=== PATIENT | female | born 1940 | race American Indian/Alaskan Native ===

== ENCOUNTER 2017-09-30 14:31 | Inpatient (IN) | payer OTHER, MEDICARE ==
[~2017-09-30] VITALS: Ht 157.5 cm; Wt 77.2 kg
[~2017-09-30 14:31] MED LIST: VICODIN 5-3001 EACH PO
--- NOTE | 2017-09-30 15:33 | RADIOLOGY REPORT ---
EXAMINATION: XR CHEST CLINICAL INFORMATION: Altered mental status. Evaluate infection COMPARISON: 03/04/2017 TECHNIQUE: 2 views of the chest were obtained. FINDINGS: Lungs are clear. No focal consolidation or mass. Normal pulmonary vascularity. No pleural effusion or pneumothorax. Normal heart size. Regional skeleton intact. IMPRESSION: No acute pulmonary disease.
[2017-09-30 15:47] LABS: ABSOLUTE BASOPHIL COUNT 0 /CUMM (0.0-0.2); ABSOLUTE EOSINOPHIL COUNT 0.1 /CUMM (0.0-0.7); ABSOLUTE GRANULOCYTE CT 4.8 /CUMM (1.4-6.5); ABSOLUTE LYMPH COUNT 2.6 /CUMM (1.2-3.4); ABSOLUTE MONOCYTE COUNT 0.4 /CUMM (0.10-0.60); BASOPHIL % 0.3 % (0.0-2.0); EOSINOPHIL % 1.6 % (0-5); GRANULOCYTE % 60.3 % (42.2-75.2); HEMATOCRIT 33.2 % (37-47); MEAN CORPUSCULAR HGB 29.1 PG (27.0-31.0); MEAN CORPUSCULAR HGB CONC 33.4 G/DL (33.0-37.0); MEAN CORPUSCULAR VOLUME 87.1 FL (81.0-99.0); PLATELET COUNT 253 /CUMM (130-400); RBC DISTRIBUTION WIDTH 14.3 % (11.5-14.5); RED BLOOD CELL CT 3.81 /CUMM (4.20-5.40)
--- NOTE | 2017-09-30 16:33 | ED GENERAL ADULT ---
History of Present Illness General Chief Complaint: Altered Mental Status Stated Complaint: PER DAUGHTER ALTERED SPEECH, "GIBERISH WRITTING" Source: patient, family Exam Limitations: no limitations Vital Signs & Intake/Output Vital Signs & Intake/Output ED Intake and Output 10/03 0000 10/02 1200 Intake Total Output Total 500 Balance -500 Output, Urine 500 Allergies Coded Allergies: latex (Intermediate, SKIN IRRITATION 09/30/17) Sulfa (Sulfonamide Antibiotics) (Mild, VOMITING 09/30/17) Reconcile Medications Aspirin (Ecotrin*) 81 MG TABLET.DR 81 MG PO DAILY STROKE TAKE THIS TAB UNTIL 10/28/17 AND THEN STOP . Atorvastatin Calcium 80 MG TABLET 80 MG PO 1700 STROKE . Candesartan Cilexetil (Atacand) 16 MG TABLET 2 TAB PO DAILY HTN (Reported) Clopidogrel Bisulfate (Plavix) 75 MG TABLET 75 MG PO DAILY STROKE . Ergocalciferol (Vitamin D2) (Vitamin D2) 50,000 UNIT CAPSULE 1 CAP PO QW VIT D DEFICIENCY (Reported) Insulin Glargine/Lixisenatide (Soliqua 100 Unit-33 Mcg/Ml Pen) 100 UNIT-33 MCG/ ML (3 ML) INSULN.PEN 1 INJ DAILY DIABETES (Reported) Metformin HCl (Fortamet) 1,000 MG TAB.ER.24 1 PO DAILY DIABETES (Reported) Metoprolol Succ XL (Toprol XL) 25 MG TAB 1 TAB PO DAILY HTN (Reported) Triage Note: PT TO ED WITH DAUGHTER FOR DIFFICULTY PROCESSING WORDS AND FORMULATING SENTENCES INTERMITTENTLY. PT'S DAUGHTER REPORTS THAT PT WAS TRYING TO WRITE CHECKS YESTERDAY AND THE WRITING LOOKED LIKE GIBBERISH. PT IS NORMALLY VERY SHARP AND A/O. NO SLURRED SPEECH OR UNILATERAL WEAKNESS NOTED IN TRIAGE. PT IS A/O TO MONTH, PLACE, BUT COULD NOT REMEMBER YEAR BUT DOES KNOW PRESIDENT. Triage Nurses Notes Reviewed? yes Onset: Gradual Duration: week(s): Timing: intermittent HPI: 77 y/o female with h/o HTN, HLD, and diabetes presenting with intermittent episodes of expfressive aphasia with difficulty formulating sentences/word finding, difficulty writing, and difficulty reading. Pt presents with her daughter who helps to provider the hx. Daughter reports that yesterday she was writing a check and was unable to write and comprehensible words or numbers, the handwriting was "scribble." The episodes are intermittent, no known triggers, and pt is currently asymptomatic and back to her baseline. At triage pt was noted to be A&Ox2, but on my assessment is currently A&Ox3 with NIH stroke scale 0. Denies ROBERTS, head trasuma, extremity weakness/numbness/paresthesias, gait instability. (Nubia Trujillo) Past History Travel History Traveled to [place] past 21 day No Medical History Any Pertinent Medical History? see below for history Cardiovascular: hypertension, hyperlipidemia Endocrine: diabetes Surgical History Surgical History: KNEE SURGERY Psychosocial History What is your primary language Lori Tobacco Use: Never used ETOH Use: denies use Illicit Drug Use: denies illicit drug use Family History Hx Contributory? No (Nubia Trujillo) Review of Systems Review of Systems Constitutional: Reports: no symptoms. EENTM: Reports: no symptoms. Respiratory: Reports: no symptoms. Cardiovascular: Reports: no symptoms. GI: Reports: no symptoms. Genitourinary: Reports: no symptoms. Musculoskeletal: Reports: no symptoms. Skin: Reports: no symptoms. Neurological/Psychological: Reports: see HPI. Hematologic/Endocrine: Reports: no symptoms. Immunologic/Allergic: Reports: no symptoms. All Other Systems: Reviewed and Negative (Nubia Trujillo) Physical Exam Physical Exam General Appearance: well developed/nourished, no apparent distress, alert, awake , comfortable Head: atraumatic, normal appearance Eyes: Bilateral: normal appearance, PERRL, EOMI. Neck: normal inspection Respiratory: normal breath sounds, lungs clear Cardiovascular: regular rate/rhythm Gastrointestinal: soft, non-tender Back: normal inspection Extremities: normal inspection Neurologic/Psych: no motor/sensory deficits, awake, alert, oriented x 3, normal gait, electrical design engineer II-XII nml as tested, cerebellar function intact Skin: intact, normal color, warm/dry Core Measures ACS in differential dx? No CVA/TIA Diagnosis: Yes NIH Stroke Scale (24 Hours) NIH Stroke Scale (24 Hours) Response Value Level of Consciousness alert 0 LOC Questions answers both correctly 0 LOC Commands obeys both correctly 0 Best Gaze normal 0 Visual Guzman no visual loss 0 Facial Paresis normal 0 Motor Arm - Left no drift 0 Motor Arm - Right no drift 0 Motor Leg - Left no drift 0 Motor Leg - Right no drift 0 Limb Ataxia no ataxia 0 Sensory normal 0 Best Language no aphasia 0 Dysarthria normal articulation 0 Extinction and Inattention no neglect 0 Total 0 Sepsis Present: No Sepsis Focused Exam Completed? No (Nubia Trujillo) Progress Differential Diagnoses I considered the following diagnoses in my evaluation of the patient: [TIA vs CVA va infection vs metabolic deranagement vs dementia] Plan of Care: Orders Procedure Date/time Status Discharge Patient 10/02 UNK Active Laboratory Tests 10/02/17 1035: Anion Gap 14, Estimated GFR > 60, BUN/Creatinine Ratio 21.4, Magnesium 1.6 Labs remarkable for mild hypoMag, repleted orally. Otherwise labs and urine unremrkable EKG is nonn-ischemic, trop neg. CT scan IMPRESSION: - There are multiple areas of gyriform enhancement and hypoattenuation within the periphery of the left frontal lobe, the left parietal lobe, and the left temporal occipital lobe junction that are most suggestive of evolving subacute infarcts. There is mild cortical petechial hemorrhage versus laminar necrosis associated with the left parietal and left temporal occipital lobe infarcts. There is no associated mass effect. - There is also a chronic left MCA territory infarct and there are a few chronic lacunar infarcts within the right caudate. - The left internal carotid artery is occluded just beyond its origin, remains occluded throughout the entire cervical segment, and mildly reconstitutes at the level of the ophthalmic segment which along with the remainder of the left intracranial ICA are small in caliber. The left P-comm is partially occluded distally and there is a severe stenosis of the left A1 YAQUELIN segment. Decreased caliber of the left middle cerebral artery and its distal branches in comparison to the right side without a definite acute arterial occlusion. - Moderate to severe stenosis involving the right P2 SUPERVISOR SHIPFITTERS segment. - There is a moderate stenosis involving the left subclavian artery at the level of the scalene musculature. - There is mild beaded irregularity of the mid right cervical ICA suggesting fibromuscular dysplasia. There is also mild beaded irregularity of the vertebral arteries at the C1-C2 level suggesting fibromuscular dysplasia here as well. Pt given 325mg aspiring. Call to neurology placed. Discussed with hospitalist and will admit to tele. Pt signed out to Dr. Smith with neurology consult pending. Initial ED EKG: NSR, no ST T wave changes (Nubia Trujillo) Departure Departure Disposition: STILL A PATIENT Condition: Stable Clinical Impression Primary Impression: CVA (cerebral vascular accident) Secondary Impressions: Left carotid artery occlusion Referrals: Ivy Nation MD (PCP/Family) Departure Forms: Customer Survey General Discharge Information Prescriptions: Current Visit Scripts Aspirin (Ecotrin*) 81 MG PO DAILY #30 TAB TAKE THIS TAB UNTIL 10/28/17 AND THEN STOP . Atorvastatin Calcium 80 MG PO 1700 #30 TAB . Clopidogrel Bisulfate (Plavix) 75 MG PO DAILY #30 TAB . Admission Note Spoke With: Soren Polanco MD Documentation of Exam: Documentation of any treatments & extenuating circumstances including Concerns Regarding Discharge (functional status, medication knowledge or non-compliance, living conditions, etc.) that warrant an admission rather than observation: [HD monitoring, tele monitoring, serial neuro exams, neuro consult, anti-platelets] (Nubia Trujillo) PA/MARKETING DIRECTOR ASSISTED LIVING Co-Sign Statement Statement: ED Attending supervision documentation- [x] I saw and evaluated the patient. I have also reviewed all the pertinent lab results and diagnostic results. I agree with the findings and the plan of care as documented in the PA's/MARKETING DIRECTOR ASSISTED LIVING's documentation. [] I have reviewed the ED Record and agree with the PA's/MARKETING DIRECTOR ASSISTED LIVING's documentation. [] Additions or exceptions (if any) to the PAs/MARKETING DIRECTOR ASSISTED LIVING's note and plan are summarized below: [] I saw and personally examined the patient and I agree with the PAs evaluation. Neuro exam was normal on my evaluation. (Rubio Smith DO) Critical Care Note Critical Care Note Critical Care Time: non-applicable (Nubia Trujillo)
--- NOTE | 2017-09-30 19:37 | CT SCAN REPORT ---
EXAMINATION: CT ANGIOGRAM NECK WITH CONTRAST CT ANGIOGRAM BRAIN WITH CONTRAST CLINICAL INFORMATION: Dysarthria. COMPARISON: None available. TECHNIQUE: Test bolus sequences followed by intravenous administration 95 mL of Optiray. Helical imaging was performed in the axial plane from the thoracic inlet to the skull vertex. Delayed postcontrast imaging of the head was also performed. The data was processed at the electronic technologist workstation for generation of MIP sequences. Angled MIPs and volume rendered reformatted images were also generated at an offline 3D workstation. Stenoses are assessed in accordance with NASCET criteria unless otherwise indicated. FINDINGS: BRAIN: There are multiple areas of gyriform enhancement and hypoattenuation within the periphery of the left frontal lobe, the left parietal lobe, and the left temporal occipital lobe junction that are most suggestive of evolving subacute infarcts. There is mild cortical petechial hemorrhage versus laminar necrosis associated with the left parietal and left temporal occipital lobe infarcts. There is no associated mass effect. There is a chronic appearing lacunar infarct within the right caudate. There is a chronic left MCA territory infarct. Perivascular space within the inferior left putamen. CERVICAL SOFT TISSUES AND LUNG APICES: No significant soft tissue findings within the neck. There is cervical spondylosis. The imaged upper lungs are clear. NECK CTA: There is a moderate stenosis involving the left subclavian artery at the level of the scalene musculature. Proximal arch vessels are non-stenotic. The vertebral arteries are codominant. No significant ostial stenosis is visualized on either side. Both vertebral arteries are widely patent throughout their extracranial cervical course. The right common carotid artery is widely patent. Mild atherosclerotic calcification of the right carotid bifurcation which remains widely patent. There is mild beaded irregularity of the mid right cervical ICA suggesting fibromuscular dysplasia. There is also mild beaded irregularity of the vertebral arteries at the C1-C2 level suggesting fibromuscular dysplasia here as well. The left common carotid artery is small in caliber and remains patent. The left internal carotid artery is occluded just beyond its origin and remains included through the cervical segment. BRAIN CTA: There is faint reconstitution of the intracranial left internal carotid artery at the level of the ophthalmic segment. The left P-comm is occluded along its distal portion. Severe stenosis involving the left A1 YAQUELIN segment. The left middle cerebral artery is small in caliber however does remain patent throughout its course with decreased caliber of the distal left MCA branches when compared to the contralateral side. The right intracranial internal carotid artery exhibits atherosclerotic calcification without significant stenosis. The right anterior middle cerebral arteries are widely patent. Moderate to severe stenosis involving the right P2 WEB USER EXPERIENCE STRATEGIST segment. IMPRESSION: - There are multiple areas of gyriform enhancement and hypoattenuation within the periphery of the left frontal lobe, the left parietal lobe, and the left temporal occipital lobe junction that are most suggestive of evolving subacute infarcts. There is mild cortical petechial hemorrhage versus laminar necrosis associated with the left parietal and left temporal occipital lobe infarcts. There is no associated mass effect. - There is also a chronic left MCA territory infarct and there are a few chronic lacunar infarcts within the right caudate. - The left internal carotid artery is occluded just beyond its origin, remains occluded throughout the entire cervical segment, and mildly reconstitutes at the level of the ophthalmic segment which along with the remainder of the left intracranial ICA are small in caliber. The left P-comm is partially occluded distally and there is a severe stenosis of the left A1 YAQUELIN segment. Decreased caliber of the left middle cerebral artery and its distal branches in comparison to the right side without a definite acute arterial occlusion. - Moderate to severe stenosis involving the right P2 WEB USER EXPERIENCE STRATEGIST segment. - There is a moderate stenosis involving the left subclavian artery at the level of the scalene musculature. - There is mild beaded irregularity of the mid right cervical ICA suggesting fibromuscular dysplasia. There is also mild beaded irregularity of the vertebral arteries at the C1-C2 level suggesting fibromuscular dysplasia here as well. Findings were discussed with Francisca Low at 7:30 PM on 09/30/2017.
--- NOTE | 2017-09-30 20:19 | History & Physical ---
HungcarlHakan cochranh 09/30/17 2018: General Information and HPI MD Statement: I have seen and personally examined MAXIMINO MONTAGUE and documented this H&P. The patient is a 77 year old F who presented with a patient stated chief complaint of [altered mental status]. History of Present Illness: The patient is a 77 years old lady who is here due to a change in her mental status that was noticed by her daughter and herself. She was having problems with finding words and sentences for the past couple of weeks. This was statrted gradually. Today she had more significant symptoms. She also had "giberish writing" while writing a check. No vision problem or numbness is reported. No headache. She has been having difficulty with her balance but had not had a fall before. She feels that the room is spinning sometimes. She reports diarrhea a cople of days ago which had no blood but she has dark stool (uses Fe supplement). She also has a lower abdominal burning sensation sometimes which improves when she sits. She also had a surgery of her left foot and some "metal" was inserted in 2012, and she feels tingling and numbness in that area from time to time. PMHx: DM, HTN, HLP, Sinus infection, Low Vit D, PSHx: Knee replacement (2017) Social Hx: No smoking, no alcohol, no drugs Imaging: Head CTA: The left internal carotid artery is occluded just beyond its origin. There are multiple areas of gyriform enhancement and hypoattenuation within the periphery of the left frontal lobe, the left parietal lobe, and the left temporal occipital lobe junction that are most suggestive of evolving subacute infarcts. CXR: No acute pulmonary disease. Allergies/Medications Allergies: Coded Allergies: latex (Intermediate, SKIN IRRITATION 09/30/17) Sulfa (Sulfonamide Antibiotics) (Mild, VOMITING 09/30/17) Compliance With Home Meds: GOOD Past History Travel History Traveled to [place] past 21 day No Medical History Cardiovascular: hypertension, hyperlipidemia Endocrine: diabetes Surgical History Surgical History: KNEE SURGERY Past Family/Social History Psychosocial History ETOH Use: denies use Illicit Drug Use: denies illicit drug use Review of Systems Review of Systems Constitutional: Reports: see HPI. EENTM: Reports: see HPI. Cardiovascular: Reports: see HPI. Respiratory: Reports: see HPI. GI: Reports: see HPI. Genitourinary: Reports: see HPI. Musculoskeletal: Reports: see HPI, back pain. Skin: Reports: see HPI, rash. Neurological/Psychological: Reports: see HPI. Hematologic/Endocrine: Reports: see HPI. Exam & Diagnostic Data Last 24 Hrs of Vital Signs/I&O Vital Signs Date Time Temp Pulse Resp B/P B/P Pulse O2 O2 Flow FiO2 Mean Ox Delivery Rate 09/30 2235 98.7 105 19 164/90 96 09/30 1926 97 18 142/90 99 Room Air 09/30 1638 Room Air 09/30 1508 99.4 99 15 129/74 95 Room Air Room Air Intake & Output 10/01 0800 10/01 0000 09/30 1600 Intake Total 0 Output Total Balance 0 Intake, Oral 0 Patient 166 lb 164 lb Weight Weight Reported by Patient Measurement Method Physical Exam General Appearance Alert, Oriented X3, Cooperative, No Acute Distress Skin Temp/Moisture Exam: Warm/Dry Sepsis Skin Exam (color): Normal for Ethnicity HEENT Atraumatic, PERRLA, EOMI Neck Supple Cardiovascular Regular Rate, Normal S1, Normal S2 Lungs Clear to Auscultation, Normal Air Movement Abdomen Normal Bowel Sounds, Soft, No Tenderness Neurological Strength at 5/5 X4 Ext, Cranial Nerves 3-12 NL Extremities No Clubbing, No Cyanosis, Normal Pulses Vascular Normal Pulses, Pulses Symmetrical Assessment/Plan Assessment: Ms. Montague is a 77 yo lady who is here with cc of change in her speech pattern and writing. Head CTA has shown occlusion in her left internal coratid artery. It also revealed multiple subacute infarcts. Neurolosist recommended to start clopedigrol for her. She has been coughing, per her daughter it is a side effect of one of her medications, but in her current setting it is reasonable to perform a swallow test. Her daughter is supposed to get a complete list of her medications. The patient has complete occlusion of her left internal carotid artery, it might be reasonable to consult vascular surgeon although it is not likely that they will perform a procedure for her. As Ranked By This Provider Problem List: 1. CVA (cerebral vascular accident) Core Measures/Misc (12/05) Acute Coronary Syndrome ACS Diagnosis: No Congestive Heart Failure Congestive Heart Failure Diagnosis No Cerebrovascular Accident CVA/TIA Diagnosis: Yes NIH Stroke Scale: Total 0 tPA Risk/Benefit discussion I have discussed the risks, benefits, and alternatives of Alteplase treatment including: - If given promptly, can resolve or have major improvement in stroke symptoms. - Bleeding (hemorrhage) is the most common risk that can occur. - Bleeding may occur into the brain and cause~care home serious disability~ including - this is rare, affecting about 1% of patients. - Alternative treatments with proven benefit for patients with stroke include aspirin and care in a specialized unit where staff members pay careful attention to a variety of basic aspects of care. tPA given? No Reason tPA not ordered Medical Contraindication Current/Past Hx AFib/AFlutter No VTE (View Protocol) VTE Risk Factors Age>40 No Mechanical VTE Prophylaxis d/t N/A MechProphylax Ordered No VTE Pharm Prophylaxis d/t NA PharmProphylax ordered Sepsis (View protocol) Sepsis Present: No If YES complete Sepsis Event Note If YES complete Sepsis Event Note Devon Real MD 10/01/17 0427: General Information and HPI Allergies/Medications Home Med list Aspirin (Ecotrin*) 81 MG TABLET.DR 81 MG PO DAILY STROKE TAKE THIS TAB UNTIL 10/28/17 AND THEN STOP . Atorvastatin Calcium 80 MG TABLET 80 MG PO 1700 STROKE . Candesartan Cilexetil (Atacand) 16 MG TABLET 2 TAB PO DAILY HTN (Reported) Clopidogrel Bisulfate (Plavix) 75 MG TABLET 75 MG PO DAILY STROKE . Ergocalciferol (Vitamin D2) (Vitamin D2) 50,000 UNIT CAPSULE 1 CAP PO QW VIT D DEFICIENCY (Reported) Insulin Glargine/Lixisenatide (Soliqua 100 Unit-33 Mcg/Ml Pen) 100 UNIT-33 MCG/ ML (3 ML) INSULN.PEN 1 INJ DAILY DIABETES (Reported) Metformin HCl (Fortamet) 1,000 MG TAB.ER.24 1 PO DAILY DIABETES (Reported) Metoprolol Succ XL (Toprol XL) 25 MG TAB 1 TAB PO DAILY HTN (Reported) Core Measures/Misc (12/05) Sepsis (View protocol) If YES complete Sepsis Event Note If YES complete Sepsis Event Note Resident Review Statement Resident Statement: examined this patient, discussed with healthcare administration intern, discussed with family, reviewed EMR data (avail), reviewed images Other Findings: Patient is a 75-year-old female with past medical history of diabetes, hypertension, hyperlipidemia, GERD presenting this admission with chief complaint of dysarthria. Patient's family was present at time of interview and reports that patient has been having difficulty over the past 2-3 weeks with forming sentences intermittently and has been less quick to respond. Patient's daughter states that patient this afternoon started speaking gibberish and stuttering speech. Reports that patient read and write a check which she had diarrhea for years. Patient reports balance. Reports chronic hearing loss and occasional tinnitus. Denies any sensation of spinning room for herself. Denies any change in vision. Patient and family deny facial droop, numbness/weakness of one side. Daughter reports that she did start looking for a neurologist earlier in the week however was not able to schedule an appointment with anyone. Reports that patient saw a neurologist 15 years prior for left hand tremors which she was worked up for and was told was benign. Review of systems is significant for abdominal pain with burning sensation in the lower region. Patient denies any nausea, vomiting, constipation. Reports 1 day of diarrhea. Reports dark black stoolspatient is on iron supplementation at this is normal for her. Denies bright red blood per stool. Reports right thigh pain that started one week prior. Denies any fall. Was seen by her primary care physician and was started on the medication however did not receive it at the pharmacy. Patient has a history of right knee replacement performed in December 2016. Patient reports that she initially had difficulty ambulating. However now she is able to ambulate on her own without assistance. Patient denies chest pain, palpitations, shortness of breath, dysuria/hematuria. Patient in the ED had a head CT which showed multiple subacute infarcts and significant left-sided carotid artery stenosis with complete occlusion of the entire cervical segment of the left internal carotid artery with partial occlusion of the left P-comm and there is a severe stenosis of the left A1 YAQUELIN segment. The findings were discussed with neurology. Patient was given aspirin 325 mg 1 along with magnesium 4001 in the ED. Vital signs admission: MAXIMUM TEMPERATURE 99.4, heart rate 97-99, respiration rate 15-18, blood pressure 142/90, saturating at 95-99% on room air Gen.: Patient resting comfortably in bed in no acute distress HEENT: Normocephalic/atraumatic, extraocular movement intact, pupils equal and reactive to light and accommodation, moist mucosal membranes CVS: Regular rate and rhythm, S1 and S2 Lungs: Clear to auscultation bilaterally Abdomen: Soft, mildly distended, nontender, positive bowel sounds Neuro: Cranial nerves II through XII grossly intact, motor 5 out of 5 in all extremities, sensation intact Extremities: No edema, cyanosis, clubbing, tenderness, palpable pulses Labs: WBC 8, H&H 11.1 and 33.2, platelets 253, sodium 139, potassium 4.6, chloride 104, bicarbonate 21, BUN 18, creatinine 0.7, glucose 208, magnesium 1.4 , AST 26, ALT 40, troponin 0.01, UA negative Imaging: chest x-ray negative Head and neck CT: - There are multiple areas of gyriform enhancement and hypoattenuation within the periphery of the left frontal lobe, the left parietal lobe, and the left temporal occipital lobe junction that are most suggestive of evolving subacute infarcts. There is mild cortical petechial hemorrhage versus laminar necrosis associated with the left parietal and left temporal occipital lobe infarcts. There is no associated mass effect. - There is also a chronic left MCA territory infarct and there are a few chronic lacunar infarcts within the right caudate. - The left internal carotid artery is occluded just beyond its origin, remains occluded throughout the entire cervical segment, and mildly reconstitutes at the level of the ophthalmic segment which along with the remainder of the left intracranial ICA are small in caliber. The left P-comm is partially occluded distally and there is a severe stenosis of the left A1 YAQUELIN segment. Decreased caliber of the left middle cerebral artery and its distal branches in comparison to the right side without a definite acute arterial occlusion. - Moderate to severe stenosis involving the right P2 [employer] segment. - There is a moderate stenosis involving the left subclavian artery at the level of the scalene musculature. - There is mild beaded irregularity of the mid right cervical ICA suggesting fibromuscular dysplasia. There is also mild beaded irregularity of the vertebral arteries at the C1-C2 level suggesting fibromuscular dysplasia here as well. Patient is a 77-year-old female presenting with past medical history of hypertension, hyperlipidemia, diabetes presenting with symptoms indicative of CVA with imaging showing significant carotid artery disease and multiple ischemic infarcts suggesting thromboembolic disease resulting in subacute stroke. Patient is out of the window for TPA as her symptoms started approximately 2-3 weeks prior to this admission. I spoke with neurology and it is unlikely the patient will be a candidate for endarterectomy as she has complete occlusion of her left carotid artery at the cervical segment. Patient is on aspirin. After discussing with neurology was started on her on Plavix. Plan: Admit to telemetry Continuous telemetry monitoring Continue aspirin Started on Plavix High dose statin Insulin SS with accuchecks TIDAC/qHS Lipid panel Hemoglobin A1c ECHO Neurology consulted Vascular consulted Patient's daughter is to bring list of her home medications Heart healthy diet Swallow evaluation in AM PT/OT evaluation Code: Full code DVT PPx: Yaz DASH MD,Soren 10/01/17 0451: General Information and HPI MD Statement: I have seen and personally examined MAXIMINO MONTAGUE and documented this H&P. The patient is a 77 year old F who presented with a patient stated chief complaint of []. Past History Medical History Cardiovascular: hypertension, hyperlipidemia Endocrine: diabetes Surgical History Surgical History: KNEE SURGERY Past Family/Social History Psychosocial History Smoking Status: Never Smoked ETOH Use: denies use Illicit Drug Use: denies illicit drug use Review of Systems Review of Systems Constitutional: Reports: see HPI. Exam & Diagnostic Data Last 24 Hrs of Vital Signs/I&O Vital Signs Date Time Temp Pulse Resp B/P B/P Pulse O2 O2 Flow FiO2 Mean Ox Delivery Rate 09/30 2235 98.7 105 19 164/90 96 09/30 1926 97 18 142/90 99 Room Air 09/30 1638 Room Air 09/30 1508 99.4 99 15 129/74 95 Room Air Room Air Intake & Output 10/01 0800 10/01 0000 09/30 1600 Intake Total 0 Output Total Balance 0 Intake, Oral 0 Patient 167 lb 164 lb Weight Weight Reported by Patient Reported by Patient Measurement Method Physical Exam General Appearance Alert, Oriented X3, No Acute Distress HEENT Atraumatic, PERRLA, EOMI Neck Supple Lymphatic Axillary nl, Cervical nl Cardiovascular Regular Rate, Normal S1, Normal S2, No Murmurs Lungs Clear to Auscultation, Normal Air Movement Abdomen Normal Bowel Sounds, Soft, No Tenderness Neurological Strength at 5/5 X4 Ext, Cranial Nerves 3-12 NL Extremities No Clubbing, No Cyanosis, Normal Pulses Vascular Normal Pulses, Pulses Symmetrical Core Measures/Misc (12/05) Sepsis (View protocol) If YES complete Sepsis Event Note If YES complete Sepsis Event Note Attending MD Review Statement Attending Statement Attending MD Statement: examined this patient, discuss w/resident/PA/AIRCRAFT TIME CLERK, agreed w/resident/PA/AIRCRAFT TIME CLERK, amended to note Attending Assessment/Plan: This patient is a 75-year-old female with a significant past medical history for diabetes, hypertension, hyperlipidemia, GERD presenting this admission with chief complaint of dysarthria. The Patient's family reports that patient has been having difficulty over the past 2-3 weeks with forming sentences intermittently and has been less quick to respond. Patient's daughter states that patient this afternoon started speaking gibberish and stuttering speech. She presented to the ED and a head CT showed multiple subacute infarcts and significant left-sided carotid artery stenosis with complete occlusion of the entire cervical segment of the left internal carotid artery with partial occlusion of the left. The findings were discussed with neurology. Patient was given aspirin 325 mg 1 along with Plavix 4001 in the ED. The Patient was out of the window for TPA. Neurology states the patient is not a candidate for endarterectomy as she has complete occlusion of her left carotid artery at the cervical segment however the family would like further options. Vascular surgery was consulted for the AM.
[2017-09-30 22:35] VITALS: BP 164/90
[2017-10-01 07:13] VITALS: BP 124/80
[2017-10-01 08:29] LABS: ABSOLUTE BASOPHIL COUNT 0 /CUMM (0.0-0.2); ABSOLUTE EOSINOPHIL COUNT 0.2 /CUMM (0.0-0.7); ABSOLUTE GRANULOCYTE CT 4.2 /CUMM (1.4-6.5); ABSOLUTE LYMPH COUNT 3.2 /CUMM (1.2-3.4); ABSOLUTE MONOCYTE COUNT 0.5 /CUMM (0.10-0.60); BASOPHIL % 0.3 % (0.0-2.0); GRANULOCYTE % 51.5 % (42.2-75.2); HEMATOCRIT 33.2 % (37-47); MEAN CORPUSCULAR HGB 29.5 PG (27.0-31.0); MEAN CORPUSCULAR HGB CONC 33.8 G/DL (33.0-37.0); MEAN CORPUSCULAR VOLUME 87.3 FL (81.0-99.0); MEAN PLATELET VOLUME 8.4 FL (7.4-10.4); PLATELET COUNT 220 /CUMM (130-400); RBC DISTRIBUTION WIDTH 14.3 % (11.5-14.5); WHITE BLOOD CELL COUNT 8.1 /CUMM (4.8-10.8)
--- NOTE | 2017-10-01 12:03 | PN- Housestaff ---
Galina Crump 10/01/17 1202: Subjective Follow-up For: CVA Complaints: no complaints Tele-Events Since Last Visit: Sinus tachycardia. Heart rate 105(12 midnight) Normal sinus rhythm 92-98 Subjective: No complaints/no acute events overnight Review of Systems Constitutional: Reports: see HPI. Objective Last 24 Hrs of Vital Signs/I&O Vital Signs Date Time Temp Pulse Resp B/P B/P Pulse O2 O2 Flow FiO2 Mean Ox Delivery Rate 10/02 0800 Room Air 10/02 0732 98.5 98 18 150/86 97 Room Air 10/01 2307 98.0 94 18 104/66 97 Room Air 10/01 1515 97.7 94 21 128/82 95 10/01 1430 Room Air Intake & Output 10/02 1600 10/02 0800 10/02 0000 Intake Total 640 Output Total 500 Balance -500 640 Intake, Oral 640 Output, Urine 500 Patient 170 lb Weight Weight Bed scale Measurement Method Physical Exam General Appearance: Alert, Oriented X3, Cooperative Skin Temp/Moisture Exam: Cool/Dry HEENT: Atraumatic, PERRLA, EOMI Neck: Supple Cardiovascular: Regular Rate, Normal S1, Normal S2, No Murmurs Lungs: Clear to Auscultation, Normal Air Movement Abdomen: Normal Bowel Sounds, Soft, No Tenderness, No Hepatospenomegaly Neurological: Strength at 5/5 X4 Ext, Normal Tone, Sensation Intact Extremities: No Clubbing, No Cyanosis, No Edema Assessment/Plan Assessment: The patient is a 77 years old lady who is here due to a change in her mental status that was noticed by her daughter and herself. She was having problems with finding words and sentences for the past couple of weeks. This was statrted gradually. Today she had more significant symptoms. She also had "giberish writing" while writing a check. No vision problem or numbness is reported. No headache. She has been having difficulty with her balance but had not had a fall before. She feels that the room is spinning sometimes. She reports diarrhea a cople of days ago which had no blood but she has dark stool (uses Fe supplement). She also had a surgery of her left foot and some "metal" was inserted in 2012, and she feels tingling and numbness in that area from time to time. Vitals: Stable Problems; 1.Ischemic stroke-Multiple subacute infarcts-tPA not given 2. Diabetes, HTN, HLD Plan; stroke- reviewed ct scan findings with pts family at bedside. * continue dual antiplatelet therapy for 4 weeks * continue statin * bp medications are on hold for now to allow permissive htn * Lovenox discontinued due to petechial hemorrhages on ct head * Request PT consult * DVT px: ALPS * Diet:consistent carb diet * Code status: full Problem List: 1. CVA (cerebral vascular accident) Pain Ratin Pain Location: none Pain Goal: Remain pain free Pain Plan: follow pain pathway Tomorrow's Labs & Rationales: bep, cbc YemiMingsudheer 10/01/17 1637: Attending MD Review Statement Attending Statement Attending MD Statement: examined this patient, discuss w/resident/PA/NURSE ANESTHETIST, agreed w/resident/PA/NURSE ANESTHETIST, discussed with family, reviewed EMR data (avail), discussed with nursing Attending Assessment/Plan: stroke- reviewed ct scan findings with pts family at bedside. cont dual antiplatelet therapy for 4 weeks and cont statin and will allow permissive htn for now and will start bp meds as needed. d/w pts family that vascular surgery has been consulted but little could be done immediately in settings of acute stroke. Lovenox dced in view of petechial hemorrhages on ct will cont on ALPS will get PT consult d/w pt and pts family the care plan.
[2017-10-01 15:15] VITALS: BP 128/82
--- NOTE | 2017-10-01 16:13 | Cons- Neurology ---
General Information and HPI Consulting Request Date of Consult: 10/01/17 Requested By: Soren Polanco MD History of Present Illness: 77-year-old female presented after noting word findiNG difficulties, and difficulty writing Symptoms date back a few weeks when it was also noted that she had word finding difficulties and difficulties with conjugate in her verbs It was then noted that she could not write out her check correctly. She uses her right hand to write although states that she has a left-handed individual Symptoms worsened prompting visit to hospital ED There was no focal weakness upper and lower extremities There was no fall Symptoms fluctuated and this morning she appears to be doing better There was no vertigo or diplopia Prior to past couple of weeks she had no similar problems Allergies/Medications Allergies: Coded Allergies: latex (Intermediate, SKIN IRRITATION 09/30/17) Sulfa (Sulfonamide Antibiotics) (Mild, VOMITING 09/30/17) Home Med List: Hydrocodone/Acetaminophen (Vicodin 5-300 MG Tablet) 5 MG-300 MG TABLET 1 TAB PO BID PRN pain Current Medications: Current Medications Sig/Jessica Start time Last Medication Dose Route Stop Time Status Admin Acetaminophen 500 MG Q6P PRN 10/01 0915 AC 10/01 PO 0930 Aspirin 0 .STK-MED ONE 09/30 2012 DC PO Aspirin 325 MG ONCE ONE 10/01 1999 DC 09/30 PO 09/30 Aspirin Buffered 81 MG DAILY 10/01 0900 AC 10/01 PO 1257 Atorvastatin Calcium 80 MG 1700 10/01 1700 AC PO Clopidogrel Bisulfate 75 MG DAILY 09/30 2245 AC 10/01 PO 1257 Enoxaparin Sodium 40 MG DAILY 10/01 0900 DC 10/01 NM 0933 Insulin Aspart 0 TIDAC 10/01 0800 AC 10/01 SC 1257 Lidocaine 1 PAT DAILY NEEDED PRN 10/01 1100 AC TOP Magnesium Oxide 400 MG ONCE ONE 09/30 1645 DC 09/30 PO 09/30 1646 1705 Review of Systems Review of Systems: Mild headache today but usually no headaches No diplopia/ vertigo Hearing loss bilaterally No recent weight gain Occasional chest pains which were previously evaluated by cardiology No acute shortness of breath Occasional abdominal discomfort No incontinence Mild rash left upper extremity No swelling of lower extremities No falls or head trauma Past History Travel History Traveled to [place] past 21 day No Medical History Blood Transfusion Hx: No Cardiovascular: hypertension, hyperlipidemia Endocrine: diabetes Surgical History Surgical History: KNEE SURGERY Psychosocial History Where Do You Live? Home Services at Home: None Smoking Status: Never Smoked ETOH Use: denies use Illicit Drug Use: denies illicit drug use Exam & Diagnostic Data Vital Signs and I&O Vital Signs Date Time Temp Pulse Resp B/P B/P Pulse O2 O2 Flow FiO2 Mean Ox Delivery Rate 10/01 1515 97.7 94 21 128/82 95 10/01 1430 Room Air 10/01 0713 98.4 98 18 124/80 96 Room Air 09/30 2235 98.7 105 19 164/90 96 09/30 1926 97 18 142/90 99 Room Air 09/30 1638 Room Air Intake & Output 10/01 1600 10/01 0800 10/01 0000 Intake Total 760 400 100 Output Total Balance 760 400 100 Intake, Oral 760 400 100 Patient 167 lb Weight Weight Reported by Patient Measurement Method Physical Exam: Alert and oriented Language functions fund of knowledge attention span relatively intact Impaired short-term memory Able to write Able to read Heart sounds normal, no carotid bruits, distal pulses intact Extraocular movements full, pupils equal reactive, fundi benign, visual tovar intact no facial weakness or facial sensory loss,, palate tongue sholders intact , hearing mildly impaired bilaterally Normal tone and strength upper and lower extremities No sensory loss to light touch or position sense modalities Deep tendon reflexes hypoactive throughout Coordinative functions and gait show no abnormalities Last 48 Hours of Lab Results: Laboratory Tests 10/01 09/30 0640 1730 Chemistry Sodium (137 - 145 mmol/L) 142 Potassium (3.5 - 5.1 mmol/L) 4.4 Chloride (98 - 107 mmol/L) 104 Carbon Dioxide (22 - 30 mmol/L) 27 Anion Gap (5 - 16) 11 BUN (7 - 17 mg/dL) 21 H Creatinine (0.5 - 1.0 mg/dL) 0.7 Estimated GFR (>60 ml/min) > 60 BUN/Creatinine Ratio (7 - 25 %) 30.0 H Hemoglobin A1c (4.2 - 5.8 %) Pending Triglycerides (<150 mg/dL) 388 H Cholesterol (<200 MG/DL) 241 H LDL Cholesterol, Calc (65 - 129 mg/dL) 119 HDL Cholesterol (40 - 60 mg/dL) 45 Cholesterol/HDL Ratio (0.00 - 4.23 %) 5 H Hematology CBC w Diff NO MAN DIFF REQ WBC (4.8 - 10.8 /CUMM) 8.1 RBC (4.20 - 5.40 /CUMM) 3.80 L Hgb (12.0 - 16.0 G/DL) 11.2 L Hct (37 - 47 %) 33.2 L MCV (81.0 - 99.0 FL) 87.3 MCH (27.0 - 31.0 PG) 29.5 MCHC (33.0 - 37.0 G/DL) 33.8 RDW (11.5 - 14.5 %) 14.3 Plt Count (130 - 400 /CUMM) 220 MPV (7.4 - 10.4 FL) 8.4 Gran % (42.2 - 75.2 %) 51.5 Lymphocytes % (20.5 - 51.1 %) 39.7 Monocytes % (1.7 - 9.3 %) 6.5 Eosinophils % (0 - 5 %) 2.0 Basophils % (0.0 - 2.0 %) 0.3 Absolute Granulocytes (1.4 - 6.5 /CUMM) 4.2 Absolute Lymphocytes (1.2 - 3.4 /CUMM) 3.2 Absolute Monocytes (0.10 - 0.60 /CUMM) 0.5 Absolute Eosinophils (0.0 - 0.7 /CUMM) 0.2 Absolute Basophils (0.0 - 0.2 /CUMM) 0 Urines Urine Color (YEL,AMB,STR) STRAW Urine Clarity (CLEAR) CLEAR Urine pH (5.0 - 8.0) 6.0 Ur Specific Lodge (1.001 - 1.035) 1.010 Urine Protein (NEG,<30 MG/DL) NEG Urine Ketones (NEG) NEG Urine Nitrite (NEG) NEG Urine Bilirubin (NEG) NEG Urine Urobilinogen (0.1 - 1.0 EU/dl) 0.2 Ur Leukocyte Esterase (NEG) NEG Ur Microscopic EXAM NOT REQUIRED Urine Hemoglobin (NEG) NEG Urine Glucose (N MG/DL) NEG 09/30 1537 Chemistry Sodium (137 - 145 mmol/L) 139 Potassium (3.5 - 5.1 mmol/L) 4.6 Chloride (98 - 107 mmol/L) 104 Carbon Dioxide (22 - 30 mmol/L) 21 L Anion Gap (5 - 16) 14 BUN (7 - 17 mg/dL) 18 H Creatinine (0.5 - 1.0 mg/dL) 0.7 Estimated GFR (>60 ml/min) > 60 BUN/Creatinine Ratio (7 - 25 %) 25.7 H Glucose (65 - 99 mg/dL) 208 H Calcium (8.4 - 10.2 mg/dL) 9.1 Magnesium (1.6 - 2.3 mg/dL) 1.4 L Total Bilirubin (0.2 - 1.3 mg/dL) 0.3 AST (14 - 36 U/L) 26 ALT (9 - 52 U/L) 40 Alkaline Phosphatase (<127 U/L) 92 Troponin I (< 0.11 ng/ml) 0.02 Total Protein (6.3 - 8.2 g/dL) 6.9 Albumin (3.5 - 5.0 g/dL) 4.0 Globulin (1.9 - 4.2 gm/dL) 2.9 Albumin/Globulin Ratio (1.1 - 2.2 %) 1.4 Hematology CBC w Diff NO MAN DIFF REQ WBC (4.8 - 10.8 /CUMM) 8.0 RBC (4.20 - 5.40 /CUMM) 3.81 L Hgb (12.0 - 16.0 G/DL) 11.1 L Hct (37 - 47 %) 33.2 L MCV (81.0 - 99.0 FL) 87.1 MCH (27.0 - 31.0 PG) 29.1 MCHC (33.0 - 37.0 G/DL) 33.4 RDW (11.5 - 14.5 %) 14.3 Plt Count (130 - 400 /CUMM) 253 MPV (7.4 - 10.4 FL) 8.0 Gran % (42.2 - 75.2 %) 60.3 Lymphocytes % (20.5 - 51.1 %) 32.4 Monocytes % (1.7 - 9.3 %) 5.4 Eosinophils % (0 - 5 %) 1.6 Basophils % (0.0 - 2.0 %) 0.3 Absolute Granulocytes (1.4 - 6.5 /CUMM) 4.8 Absolute Lymphocytes (1.2 - 3.4 /CUMM) 2.6 Absolute Monocytes (0.10 - 0.60 /CUMM) 0.4 Absolute Eosinophils (0.0 - 0.7 /CUMM) 0.1 Absolute Basophils (0.0 - 0.2 /CUMM) 0 Imaging/Other Studies: BRAIN CTA: There is faint reconstitution of the intracranial left internal carotid artery at the level of the ophthalmic segment. The left P-comm is occluded along its distal portion. Severe stenosis involving the left A1 YAQUELIN segment. The left middle cerebral artery is small in caliber however does remain patent throughout its course with decreased caliber of the distal left MCA branches when compared to the contralateral side. The right intracranial internal carotid artery exhibits atherosclerotic calcification without significant stenosis. The right anterior middle cerebral arteries are widely patent. Moderate to severe stenosis involving the right P2 JAVA TECH segment. IMPRESSION: - There are multiple areas of gyriform enhancement and hypoattenuation within the periphery of the left frontal lobe, the left parietal lobe, and the left temporal occipital lobe junction that are most suggestive of evolving subacute infarcts. There is mild cortical petechial hemorrhage versus laminar necrosis associated with the left parietal and left temporal occipital lobe infarcts. There is no associated mass effect. - There is also a chronic left MCA territory infarct and there are a few chronic lacunar infarcts within the right caudate. - The left internal carotid artery is occluded just beyond its origin, remains occluded throughout the entire cervical segment, and mildly reconstitutes at the level of the ophthalmic segment which along with the remainder of the left intracranial ICA are small in caliber. The left P-comm is partially occluded distally and there is a severe stenosis of the left A1 YAQUELIN segment. Decreased caliber of the left middle cerebral artery and its distal branches in comparison to the right side without a definite acute arterial occlusion. - Moderate to severe stenosis involving the right P2 JAVA TECH segment. - There is a moderate stenosis involving the left subclavian artery at the level of the scalene musculature. - There is mild beaded irregularity of the mid right cervical ICA suggesting fibromuscular dysplasia. There is also mild beaded irregularity of the vertebral arteries at the C1-C2 level suggesting fibromuscular dysplasia here as well. Findings were discussed with Francisca Low at 7:30 PM on 09/30/2017. Assessment/Plan Assessment: Cerebrovascular accident left hemispheric Left carotid occlusion Recommendations: Dual antiplatelet agents for 4 weeks thereafter would discontinue aspirin and remain on clopidogrel Blood pressure allowed to rise to between 130 and 140 systolic Diabetic control Graduated exercise program Vegetables and fish as part of meals Mild weight loss Patient and patient's daughter desires consultation with vascular surgery. However discussion with family followed and likelihood of a surgical intervention remains remote Consult Acknowledgment - Thank you for your consult request.
[2017-10-01 23:07] VITALS: BP 104/66
[2017-10-02 07:32] VITALS: BP 150/86
--- NOTE | 2017-10-02 08:26 | PN- Housestaff ---
Candie Castillo 10/02/17 0826: Subjective Follow-up For: CVA Carotid Stenosis Subjective: Patient seen and examined this morning. She was accompanied by her family. Daughter is patients proxy and very concerned about patients care and eager to be discharged. Patient alert to person place and time this morning. Denies any headaches or symptoms of numbness, weakness. No fevers, urinary or bowel incontinence noted. Review of Systems Constitutional: Denies: see HPI. Objective Last 24 Hrs of Vital Signs/I&O Vital Signs Date Time Temp Pulse Resp B/P B/P Pulse O2 O2 Flow FiO2 Mean Ox Delivery Rate 10/02 0800 Room Air 10/02 0732 98.5 98 18 150/86 97 Room Air 10/01 2307 98.0 94 18 104/66 97 Room Air 10/01 1515 97.7 94 21 128/82 95 Intake & Output 10/02 1600 10/02 0800 10/02 0000 Intake Total 640 Output Total 500 Balance -500 640 Intake, Oral 640 Output, Urine 500 Patient 170 lb Weight Weight Bed scale Measurement Method Physical Exam General Appearance: Alert, Oriented X3, Cooperative, No Acute Distress HEENT: Atraumatic, PERRLA, EOMI, Mucous Membr. moist/pink Cardiovascular: Regular Rate, Normal S1, Normal S2, No Murmurs Lungs: Clear to Auscultation, Normal Air Movement Abdomen: Normal Bowel Sounds, Soft, No Tenderness Neurological: Normal Gait, Normal Speech, Strength at 5/5 X4 Ext, Normal Tone, Sensation Intact, Cranial Nerves 3-12 NL, Reflexes 2+, No significant deficits noted on speech. Patient able to comprehend and verbalize apporpriately during assessment. Extremities: No Clubbing, No Cyanosis, No Edema, Normal Pulses Vascular: Normal Pulses, Pulses Symmetrical Current Medications: Current Medications Sig/Jessica Start time Last Medication Dose Route Stop Time Status Admin Acetaminophen 500 MG Q6P PRN 10/01 0915 DCD 10/02 PO 0817 Aspirin Buffered 81 MG DAILY 10/01 0900 DCD 10/02 PO 0801 Atorvastatin Calcium 80 MG 1700 10/01 1700 DCD 10/01 PO 1711 Clopidogrel Bisulfate 75 MG DAILY 09/30 2245 DCD 10/02 PO 0801 Insulin Aspart 0 TIDAC 10/01 08 DCD 10/02 SC 0822 Lidocaine 1 PAT DAILY NEEDED PRN 10/01 1100 DCD TOP Last 24 Hrs of Lab/Noel Results Last 24 Hrs of Labs/Mics: Laboratory Tests 10/02/17 1035: Anion Gap 14, Estimated GFR > 60, BUN/Creatinine Ratio 21.4, Magnesium 1.6 Assessment/Plan Assessment: A/P: Patient is a 77 year old female with hypertension, diabetes mellitus, GERD who presented to the ED for chief complaint of dysarthria and difficulty with word finding. Patient that has been slower to respond and unable to write her routine checks. No weakness, facial droop or numbness stated. Patient alert to person place and time. CT demonstrated multiple subacute infarcts. Patient cleared for discharge today10/02/17 as per vascular surgery, neurology and medical team. Patient care discussed with family. Problem List: 1. Ischemic Stroke - Multiple Subacute Infarcts - No TPA given 2. 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 Diabetes/HTN/HLD PLAN: * Patient followed by Vascular Surgery and Neurology * Continue dual antiplatelet therapy for 4 weeks; then discontinue aspirin and remain on clopidogrel * Patient advised to control diabetes, diet including vegetables as part of meals and mild weight loss * Dr. Dominguez Vascular Surgery seen and examined patient; does not recommend any interventions at this time; follow up oputpatient with Carotid US * resume patient on home blood pressure medications and diabetic regimen * Advised to follow up with PCP, pulp roller, neurologist and vascular surgery at home Code Status: Full Code DVT PPx: ALPS DieT: Consistent Carb Diet Problem List: 1. CVA (cerebral vascular accident) Pain Ratin Pain Location: Denies pain today Pain Goal: Remain pain free Pain Plan: As per pain pathway Tomorrow's Labs & Rationales: Patient discharged today DVT/Prophylaxis: mechanical, early ambulation low risk Discharge Plan Discharge Disposition: home [facility] 10/02/17 1619: Attending MD Review Statement Attending Statement Attending MD Statement: examined this patient, discuss w/resident/PA/VEGETABLE LOADER, agreed w/resident/PA/VEGETABLE LOADER, discussed with family, reviewed EMR data (avail), discussed with nursing Attending Assessment/Plan: pt being dced home in stable condtion. Stroke- will be on dual antiplatelets therapy for 4 weeks and then will be on plavix. vascular surgery consulted - with ICA occlusion on left side. no acute intervention and plan will be to f/u with vascular surgery as and outpt and a carotid ultrasound as an outpatient . d /w pt and pts daughter the care plan.
--- NOTE | 2017-10-02 09:25 | ECHOCARDIOGRAM REPORT ---
MAXIMINO MONTAGUE Age: 77 : 1940 Gender: F Exam Date: 10/01/2017 08:41 Exam Location: 1 [address] Ht (in): 62 Wt (lb): 166 BSA: 1.84 BP: 124 / 80 Ordering Physician: Devon Real MD Referring Physician: Devon Real MD Technologist: Alicia Maldonado [facility] Room Number: 180-1 Indications: Rhythm: Atrial fibrillation Technical Quality: Fair FINDINGS Left Ventricle Normal size left ventricle. Mildly reduced global left ventricular systolic function. Abnormal septal motion. Right Ventricle Right ventricle not well visualized, grossly normal. Right Atrium Right atrium not well visualized, grossly normal. Left Atrium Mild left atrial dilatation. Mitral Valve Mitral valve thickened. Mitral annular calcification. Trace to mild mitral regurgitation. Aortic Valve Trileaflet aortic valve. Diffuse thickening (sclerosis) of the aortic valve cusps without reduced excursion. No aortic stenosis. No aortic regurgitation. Tricuspid Valve Tricuspid valve not well visualized, grossly normal. Trace tricuspid regurgitation. Pulmonic Valve Pulmonic valve not well visualized, grossly normal. Pericardium No pericardial effusion. Great Vessels Aortic root and proximal ascending aorta not well visualized, grossly normal. CONCLUSIONS 1. Minimal to mild aortic sclerosis is present with no valvular stenosis or insufficiency 2. Mitral leaflet thickening is present with mild annular calcification and minimal to mild mitral insufficiency with mild left atrial enlargement. 3. There is no significant pericardial fluid detected on the study. 4. The left ventricular chamber size is normal. There is very mild global hypokinesia present which is slightly worse in the anteroseptal region. Abnormal septal motion is present which may be due to the presence of a bundle branch block. Ejection fraction is approximately 40-45%. 5. The right heart structures are grossly normal. Minimal tricuspid insufficiency is present. The right ventricular systolic pressure was not accurately assessed. Kristy Leone M.D. (Electronically Signed) Final Date: 02 October 2017 09:24 MEASUREMENTS (Male / Female) Normal Values 2D ECHO LV Diastolic Diameter PLAX 4.9 cm 4.2 - 5.9 / 3.9 - 5.3 cm LV Systolic Diameter PLAX 4.1 cm 2.1 - 4.0 cm LV Fractional Shortening PLAX 16.3 % 25 - 46 % LV Ejection Fraction 2D Teich 34.2 % IVS Diastolic Thickness 1.0 cm LVPW Diastolic Thickness 1.0 cm LV Relative Wall Thickness 0.4 LVOT Diameter 2.0 cm Aortic Root Diameter 2.7 cm LA Systolic Diameter LX 3.0 cm 3.0 - 4.0 / 2.7 - 3.8 cm LA Volume 38.0 cm 18 - 58 / 22 - 52 cm DOPPLER AV Peak Velocity 119.0 cm/s AV Peak Gradient 5.7 mmHg LVOT Peak Velocity 68.6 cm/s LVOT Peak Gradient 1.9 mmHg AV Area Cont Eq pk 1.8 cm Mitral E Point Velocity 116.0 cm/s Mitral A Point Velocity 43.9 cm/s Mitral E to A Ratio 2.6 MV Deceleration Time 166.0 ms PV Peak Velocity 102.0 cm/s PV Peak Gradient 4.2 mmHg LV E' Lateral Velocity 5.3 cm/s Mitral E to LV E' Lateral Ratio 22.1 LV E' Septal Velocity 8.6 cm/s Mitral E to LV E' Septal Ratio 13.5
[2017-10-02] MEDS ORDERED: ATORVASTATIN CA80 M1 PO ×2 (10:26→12:00)
[2017-10-02] MEDS ORDERED: PLAVIX75 M1 PO ×2 (10:26→12:00)
[2017-10-02] MEDS ORDERED: ASPIRIN EC81 M1 PO ×3 (10:26→12:00)
--- NOTE | 2017-10-02 10:48 | Patient Discharge Instructions ---
Discharge Instructions General Discharge Information You were seen/treated for: Left Carotid Occlusion Cerebrovascular Accident Left Hemispheric You had these procedures: Carotid US Watch for these problems: Numbness, Weakness, Slurring of speech, loss of conciousness, increasing headache, chest pain/tightness, shortness of breath Special Instructions: Please follow up with PCP within 1 week of discharge. Please continue to follow up with Vascular Surgery within 1 week of discharge. Please follow up with Neurology within 1 week of discharge. Please follow up with your Traveler Changer within 1 week of discharge. Please return to the ED with worsening symptoms including increasing headache, syncope, dizziness, chest pain Diet Continue normal diet: Yes Acute Coronary Syndrome Inclusion Criteria At DC or during hospital stay patient has or had the following: ACS DIAGNOSIS No Discharge Core Measures Meds if any: Prescribed or Continued at Discharge Meds if any: NOT Prescribed or Continued at Discharge Congestive Heart Failure Inclusion Criteria At DC or during hospital stay patient has or had the following: CHF DIAGNOSIS No Discharge Core Measures Meds if any: Prescribed or Continued at Discharge Meds if any: NOT Prescribed or Continued at Discharge Cerebrovascular accident Inclusion Criteria At DC or during hospital stay patient has or had the following: CVA/TIA Diagnosis Yes Discharge Core Measures Meds if any: Prescribed or Continued at Discharge Antithrombotic Yes Statin (required if LDL =>70) Yes Meds if any: NOT Prescribed or Continued at Discharge Venous thromboembolism Inclusion Criteria VTE Diagnosis No VTE Type NONE VTE Confirmed by (Test) NONE Discharge Core Measures - Per Current guidelines, there needs to be overlap - treatment for the first 5 days of Warfarin therapy. - If discharged on Warfarin prior to 5 days of - overlap therapy, the patient will need to be - assessed for post discharge needs including - *Post discharge parental anticoagulation - *Warfarin and/or parental anticoagulation education - *Follow up date to check INR post discharge At least 5 days overlap therapy as Inpatient Yes Meds if any: Prescribed or Continued at Discharge Note: Overlap Therapy is Warfarin and Anticoagulant Meds if any: NOT Prescribed or Continued at Discharge
--- NOTE | 2017-10-02 10:52 | PN- Vascular Surgery ---
Surgical Brief Attending Note Brief Attending Note: Pt examined , events note Past medical and surgeical hx noted Left hemisphere stroke, i week with TIA's, CTA thrombosed left ICA upto opthalmic artery Right side minmal disease Neuro intact , able to talk and move A/P CVA , thrombosed ICA No interventions at this time Follow up in office with Carotid US Follow neurology recommendations
[2017-10-02] MEDS ORDERED: FORTAMET1000 MG PO (11:51)
[2017-10-02] MEDS ORDERED: VITAMIN D250000 UNIT PO (11:52)
[2017-10-02] MEDS ORDERED: TOPROL XL25 M1 PO (11:53)
[2017-10-02] MEDS ORDERED: SOLIQUA 100 UNIT3 ML INJ (11:53)
[2017-10-02] MEDS ORDERED: ATACAND16 M1 PO (11:54)
== END 2017-10-02 12:49 | DRG 66 ==
LOC: ERH 14:31 → ERHI 21:03 → ENRESERV 21:21 → ENTRNSPT 21:36 → EDTRNSPTSTS 21:37 → EDTRNSPT 21:47 → CMPTRNSPT 22:16 → 1NO 22:25 → ENPENDDIS 10-02 12:09 → 1NO 10-02 12:49
PROVIDERS: Physician Assistant; Student in an Organized Health Care Education/Training Program
DX: I63.8 Other cerebral infarction (principal); Z88.2 Allergy status to sulfonamides; Z91.040 Latex allergy status; E78.5 Hyperlipidemia, unspecified; I10 Essential (primary) hypertension; K21.9 Gastro-esophageal reflux disease without esophagitis; R47.1 Dysarthria and anarthria; E11.9 Type 2 diabetes mellitus without complications; Z79.4 Long term (current) use of insulin; R00.0 Tachycardia, unspecified
CPT/HCPCS: 1NSP; 36415; 36592; 71046; 81003; 82436; 87040; 87086; 93005; 93010; 93306; J1650